=== PATIENT | female | born 1980 | race Two or more races ===

== ENCOUNTER 2019-02-12 10:59 | Emergency (ER) | payer MEDICAID ==
[~2019-02-12] VITALS: Ht 157.5 cm; Wt 69.9 kg
[2019-02-12 11:18] VITALS: BP 140/84
== END 2019-02-12 13:11 | disposition home or self-care (01) ==
LOC: ER 11:02
DX: J00 Acute nasopharyngitis [common cold] (principal)
CPT/HCPCS: 71045-TC